=== PATIENT | male | born 1975 | race Caucasian/White ===

== ENCOUNTER 2021-06-03 16:40 | Emergency (ER) | payer SELFPAY ==
--- NOTE | ~2021-06-03 | CT_ITS ---
EXAMINATION: CT brain wo con DATE: 06/03/2021 17:32 INDICATION: Dizziness TECHNIQUE: Computed tomography (CT) of the head was performed without intravenous contrast. Sagittal and coronal reconstructions were performed. The mA was adjusted according to patient size. Iterative reconstruction technique was employed. The dose-length product was 681.00 mGy-cm. COMPARISON: None FINDINGS: No acute intracranial hemorrhage, acute infarction or abnormal extra axial fluid collection. Ventricl es are normal and symmetric. No mass/mass effect. Mucosal thickening in the bilateral ethmoid sinuses and in the left maxillary sinus. There is sclerotic wall thickening of the left maxillary sinus cons istent with chronic sinusitis. Small left mastoid effusion. The orbits are normal. IMPRESSION: 1. Normal brain. No acute intracranial process. 2. Small left mastoid effusion. 3. Chronic left maxillary sinusitis. Reviewed, dictated and finalized at location A.
[2021-06-03 16:45] VITALS: BP 141/89; PULSE 96; RESP 18; TEMP 37.2; O2SAT 100
--- NOTE | 2021-06-03 16:58 | ED.DIZZY ---
HPI - Dizziness General Chief Complaint: Dizziness Stated Complaint: dizzy Time Seen by Provider: 06/03/21 16:45 Source: RN notes reviewed History of Present Illness HPI Narrative: Patient presents to emergency department from work via EMS for dizziness. He states he was at work and was bent over to get to the other refrigerator when he stand up he became severely dizzy with the room spinning states he became very nauseous with the episode. Patient states symptoms lasted approximately 10 to 15 minutes. States that the symptoms have now resolved he denies any fever chills vision changes, chest pain shortness of breath numbness or tingling in extremities or any other symptoms of concern. Patient states he is feeling completely fine today prior to bending over Related Data Home Medications Medication Instructions Recorded Confirmed No Home Medications 06/03/21 06/03/21 Allergies Allergy/AdvReac Type Severity Reaction Status Date / Time No Known Allergies Allergy Verified 06/03/21 16:52 Review of Systems Review of Systems: Narrative: Gen.: Denies fevers or chills Eyes: Denies eye pain or visual change ENT: Denies congestion Respiratory: Denies shortness of breath or cough CV: Denies chest pain or palpitations GI: Denies abdominal pain nausea, emesis or diarrhea Musculoskeletal: Denies back pain or muscle pain Neuro: See HPI Skin: Denies rash Except as documented, all other systems reviewed and negative PMFSH Past Medical History Medical History (Updated 06/03/21 @ 16:59 by Alli Louis DO) Patient denies significant medical history Social History Social History (Updated 06/03/21 @ 16:59 by Alli Louis DO) Smoking status: Current every day smoker Exam Narrative: Exam Narrative: APPEARANCE: No acute distress, nontoxic, resting in bed HEENT: Normocephalic, atraumatic, OMM, TMs clear bilaterally EYES: PERRL, EOMI NECK: Supple, nontender, full range of motion without pain, no meningismus RESPIRATORY: No respiratory distress, clear to auscultation bilaterally with no rhonchi wheezing or rales CARDIOVASCULAR: RRR s murmur ABDOMINAL: Soft, nontender, nondistended MUSCULOSKELETAL: Moves all extremities. No clubbing, cyanosis or edema. NEURO: A and O ?3, following commands, speech normal, no facial droop,muscle strength 5 out of 5 bilateral upper and lower extremities SKIN:: Warm, dry. Normal Color PSYCHIATRIC: Normal affect/mood Course Course Emergency Course: Following CT scan reevaluate the patient patient has no tenderness over the left mastoid and no erythema Patient walking in ED with no dizziness no complaints Discussed with patient results of workup and diagnosis. Discussed need for follow-up with primary care, proper use of medication, and reasons to return to the emergency department. Patient understands and agrees to current treatment plan Vital Signs Vital signs: Vital Signs Temperature 98.9 F 06/03/21 16:45 Pulse Rate 96 06/03/21 16:45 Respiratory Rate 18 06/03/21 16:45 Blood Pressure 141/89 H 06/03/21 16:45 Pulse Oximetry 100 06/03/21 16:45 Temperature 98.9 F 06/03/21 16:45 Pulse Rate 88 06/03/21 18:56 Respiratory Rate 18 06/03/21 18:56 Blood Pressure 144/80 H 06/03/21 18:56 Pulse Oximetry 98 06/03/21 18:56 MDM - Dizziness Lab Data Result diagrams: 06/03/21 18:06 06/03/21 18:06 Labs: Lab Results 06/03/21 06/03/21 Range/Units 18:06 18:06 WBC 15.4 H (4.5-10.0) K/mm3 RBC 5.03 (4.6-6.20) M/mm3 Hgb 15.8 (14.0-18.0) g/dL Hct 46.7 (42.0-52.0) % MCV 92.8 (80-100) fl MCH 31.4 (26-34) pg MCHC 33.8 (32-36) g/dl RDW 12.7 (11.5-14.5) % Plt Count 319 (150-375) k/mm3 MPV 9.1 (7.4-10.4) fl Immature Gran % (Auto) 0.5 (0-0.5) % Neut % (Auto) 72.0 (45.5-73.1) % Lymph % (Auto) 20.2 (18.3-44.2) % Ware % (Auto) 4.9 (2.6-8.5) % Eos % (Auto) 1.8 (0-4.4) % Baso
--- NOTE | 2021-06-03 17:15 | ECG_ITS ---
Measurements Intervals [place] Rate: 92 P: 22 SD: 164 QRS: -7 QRSD: 108 T: 29 QT: 344 QTc: 427 Interpretive Statements SINUS RHYTHM DELAYED PRECORDIAL R/S TRANSITION BASELINE ARTIFACT- II, V3-V5 BORDERLINE ECG Electronically Signed On 06-03-2021 20:16:46 CDT by Vlad Guzman D.O.
[2021-06-03 18:25] LABS: Basophils Absolute Auto 0.1 K/mm3 (0.0-0.1); Basophils Percent Auto 0.6 % (0.2-1.2); Eosinophils Absolute Auto 0.3 K/mm3 (0-0.3); Eosinophils Percent Auto 1.8 % (0-4.4); Hematocrit 46.7 % (42.0-52.0); Hemoglobin 15.8 g/dL (14.0-18.0); Immature Granulocyte Absolute 0.08 K/mm3 (0.00-0.031); Immature Granulocyte Percent A 0.5 % (0-0.5); Lymphocytes Absolute Auto 3.11 K/mm3 (0.9-3.2); Lymphocytes Percent Auto 20.2 % (18.3-44.2); Mean Corpuscular HGB Conc 33.8 g/dl (32-36); Mean Corpuscular Hemoglobin 31.4 pg (26-34); Mean Corpuscular Volume 92.8 fl (80-100); Mean Platelet Volume 9.1 fl (7.4-10.4); Monocytes Absolute Auto 0.8 K/mm3 (0.1-0.6); Monocytes Percent Auto 4.9 % (2.6-8.5); Neutrophils Absolute Auto 11.1 K/mm3 (1.3-6.7); Platelet Count Result 319 k/mm3 (150-375); Red Blood Count 5.03 M/mm3 (4.6-6.20); Red Cell Distribution Width 12.7 % (11.5-14.5); White Blood Count 15.4 K/mm3 (4.5-10.0)
[2021-06-03 18:31] LABS: Alanine Aminotransferase 33 U/L (4-50); Albumin Level 4.7 g/dL (3.5-5.1); Alkaline Phosphatase 129 U/L (38-126); Anion Gap 10 mmol/L (8-16); Aspartate Amino Transferase 29 U/L (17-59); Bilirubin,Total 0.3 mg/dL (0.2-1.3); Blood Urea Nitrogen 10 mg/dL (9-20); Calcium 9.9 mg/dL (8.4-10.2); Carbon Dioxide 24 mmol/L (22-30); Chloride 106 mmol/L (98-107); Estimated CRCL calculation 115 ml/min; Estimated Glomerular Filt Rate > 60; Glucose 105 mg/dL (75-110); Potassium 3.7 mmol/L (3.4-5.0); Sodium 140 mmol/L (137-145)
[2021-06-03 18:56] VITALS: BP 144/80; PULSE 88; RESP 18; O2SAT 98
[2021-06-03] MEDS: AMOXICILLIN/CLAVULANATE K 875-125 MG TAB 1 TABLET PO (19:27)
[2021-06-03 19:31] VITALS: BP 144/82; PULSE 102; RESP 16; O2SAT 99
== END 2021-06-03 19:32 | disposition home or self-care (01) ==
PROVIDERS: Emergency Provider Emergency Medicine
DX: R42 Dizziness and giddiness (principal); F17.200 Nicotine dependence, unspecified, uncomplicated; J32.0 Chronic maxillary sinusitis; R94.31 Abnormal electrocardiogram [ECG] [EKG]
CPT/HCPCS: 36415; 70450; 80053; 85025; 93005; 99284; A9270